=== PATIENT | male | born 2000 | race Caucasian/White ===

== ENCOUNTER 2021-12-17 15:32 | Emergency (ER) | payer OTHER, BC | END 2021-12-17 16:45 | disposition home or self-care (01) | LOC: MW.ED 15:32 | DX: S97.121A Crushing injury of right lesser toe(s), initial encounter (principal); S90.111A Contusion of right great toe without damage to nail, initial encounter; S90.121A Contusion of right lesser toe(s) without damage to nail, initial encounter; Z88.8 Allergy status to other drugs, medicaments and biological substances; W23.1XXA Caught, crushed, jammed, or pinched between stationary objects, initial encounter | CPT/HCPCS: 73630-26-RT; 73630-RT; 99283 ==